=== PATIENT | female | born 1965 | race Two or more races ===

== ENCOUNTER 2018-10-05 01:36 | Emergency (ER) | payer OTHER ==
[~2018-10-05] VITALS: Ht 160 cm; Wt 108.9 kg
[~2018-10-05 01:36] MED LIST: DOXYCYCLINE HY100 M2 PO
[2018-10-05] MEDS ORDERED: LOSARTAN POTASS50 MG (01:48)
[2018-10-05] MEDS ORDERED: NORFLEX100MG PO (08:09)
[2018-10-05] MEDS ORDERED: ULTRACET PO (08:09)
== END 2018-10-05 08:15 | disposition home or self-care (01) ==
LOC: ER 01:36
DX: S30.0XXA Contusion of lower back and pelvis, initial encounter (principal); V49.9XXA Car occupant (driver) (passenger) injured in unspecified traffic accident, initial encounter; Y93.89 Activity, other specified; Y92.488 Other paved roadways as the place of occurrence of the external cause; Y99.8 Other external cause status